=== PATIENT | female | born 2000 | race Caucasian/White ===

== ENCOUNTER 2025-08-14 10:42 | Emergency (ER) | payer OTHER, SELFPAY ==
--- NOTE | ~2025-08-14 | XR_ITS ---
EXAMINATION: XR ANKLE, right CLINICAL INFORMATION: Fall COMPARISON: None available. TECHNIQUE: AP, lateral, and mortise views lower extremity joint, ankle. FINDINGS: Ankle mortise is congruent. There is no widening of the syndesmosis. Talar dome is intact. There are no calcaneal enthesophyte(s). XR/XR ankle RT min 3V IMPRESSION: Unremarkable ankle x-ray. Electronically signed by: Javi Flores MD 08/14/2025 11:49 AM [facility]
--- NOTE | ~2025-08-14 | XR_ITS ---
EXAMINATION: XR FOOT, RIGHT CLINICAL INFORMATION: fall COMPARISON: None available. TECHNIQUE: AP, lateral, and oblique views of the right foot. FINDINGS: The bones and soft tissues are normal. No fracture. Alignment is anatomic. Joint spaces are maintained. XR/XR foot RT min 3V IMPRESSION: Unremarkable right foot. Electronically signed by: Javi Flores MD 08/14/2025 11:50 AM [facility]
[2025-08-14 10:48] VITALS: BP 138/78; PULSE 88; O2SAT 99
[2025-08-14 11:15] VITALS: BP 121/76; PULSE 75; RESP 16; TEMP 36.8; O2SAT 97; BMI 23.9
--- NOTE | 2025-08-14 11:20 | ED_ITS ---
HPI - General Adult General Chief complaint: Extremity Injury, Lower Stated complaint: FALL DOWN 3 STEPS,R ANKLE PAIN Time Seen by Provider: 08/14/25 12:46 Source: patient Mode of arrival: ambulatory Limitations: no limitations History of Present Illness ED Provider: DR. Lewis HPI narrative: 25-year-old female came in for evaluation after sustained a mechanical fall at 07:00 in the morning patient tripped and missed a step causing her to fall down 3 steps of stairs and twisting her right ankle and right foot, patient is complaining of right ankle/foot pain, no head injury, no LOC, no neck pain, no CP, no SOB, no abdominal pain, no nausea, no vomiting, no neck pain. Related Data Allergies Allergy/AdvReac Type Severity Reaction Status Date / Time No Known Allergies Allergy Verified 08/14/25 11:17 Review of Systems Review of Systems: All other systems are reviewed and are negative Constitutional: Reports as per HPI and Reports no additional constitutional complaints Eyes: Reports as per HPI and Reports no additional eye complaints Reports system reviewed and no additional complaints, except as documented Cardiovascular: Reports as per HPI and Reports no additional cardiovascular complaints Respiratory: Reports as per HPI and Reports no additional respiratory complaints Gastrointestinal: Reports as per HPI and Reports no additional gastrointestinal complaints Genitourinary: Reports no additional female genitourinary complaints Musculoskeletal: Reports no additional musculoskeletal complaints Skin/Breast: Reports system reviewed and no additional complaints, except as docu Psychiatric: Reports no additional psychiatric complaints Endocrine: Reports no additional endocrine complaints Hematologic/Lymphatic: Reports no additional hematologic/lymphatic complaints Allergic/Immunologic: Reports no additional allergic/immunologic complaints Reports system reviewed and no additional complaints, except as documented and Reports Abnormal speech present [facility] Social History Social History Advance Directives: No Advance Directives Information Provided: Yes Physical Exam ED Vital Signs: Vital Signs - 24 hr 08/14/25 11:15 08/14/25 13:14 Temperature 98.3 F 98.3 F Pulse Rate 75 75 Respiratory Rate 16 16 Blood Pressure 121/76 121/76 Pulse Oximetry 97 97 Oxygen Delivery Method Room Air Room Air BMI result Body Mass Index 23.9 Vital signs have been reviewed and appear to be correct. Blood pressure elevated. Heart rate normal. Respiratory rate normal. Temperature normal. Oxygen saturation normal. Appearance: Alert. Oriented X3. No acute distress. Head: Normal external exam. Normocephalic. Atraumatic. No Jackson signs noted. No raccoon eyes noted Eyes: PERRLA. EOMI. Conjunctiva and sclera normal. Eyelids normal. ENT: TM's Normal. Pharynx normal. Uvula midline. Moist mucous membranes. No trismus noted. No drooling noted. No muffled voice noted. Neck: Normal inspection. Neck supple. FROM. No adenopathy. Thyroid Normal. No meningeal signs. No neck mass noted. CVS: Normal heart rate and rhythm. Heart sound normal. No murmurs noted. Pulses normal throughout. Respiratory: No respiratory distress. Painless inspiration. Breath sounds normal. No wheezes/rales/rhonchi noted. Chest nontender. No accessory muscle usage noted or decreased air movement noted. Abdomen: Soft and nontender. Bowel sounds normal in all 4 quadrants. No distention noted. No organomegaly noted. No visible injury noted. Back: No CVA tenderness. Full range of motion noted. Skin: Skin warm and dry. Normal skin color. Normal skin turgor. No rashes/lesions/lacerations noted. Extremities: Right lower extremity exam: Diffuse tenderness around the right ankle, +right PT/DP, cap refill is less than 2 seconds. Neuro: Oriented X 3. Cranial nerve exam: II-XII are grossly intact No motor deficit. No sensory deficit. Reflexes normal. Course Course Course Narrative: RME: 25-year-old female presents to ED for right ankle pain after falling down 3 steps. Patient denies any head or LOC. Patient is able to bear weight. X- ray ordered Reevaluation(s) Reevaluation #1: S/p right ankle contusion and sprain. Ice, elevation, Moisés bandage, NSAIDs PRN, crutches for no weight bearing. Time: 13:02 Medications Administered Discontinued Medications Generic Name Dose Route Start Last Admin Trade Name Naborq PRN Reason Stop Dose Admin Ibuprofen 800 mg 08/14/25 12:56 08/14/25 13:14 Ibuprofen 800 Mg Tablet PO 08/14/25 12:57 800 mg ONCE ONE Administration Medical Decision Making Differential Diagnosis Differential Diagnoses: The differential diagnosis associated with the presentation includes (Closed head injury, cervical spine injury, chest injury, back injury, abdominal injury, right foot fracture, right ankle fracture.) Admission/Observation Consideration of admission/observation: Escalation of care including admission/observation considered Lab Data MDM Lab Attestation statement: I reviewed the patient's lab results. Independent Interpretation I performed an independent interpretation of an: Plain X-Ray (Right ankle/foot: No acute fracture.) Radiology Impression Discussion of test interpretation with radiology: I have reviewed the radiologist's reading. Discharge Plan Discharge Clinical Impression: Ankle sprain and strain Patient Disposition: Home, Self-Care Instructions: Ankle Sprain (ED) Additional Instructions: Apply ice to the ankle and foot. Take [id number] ibuprofen 200 mg tablet every 6 hours if needed for pain. Use Moisés bandage to wrap your foot and ankle. Referrals: Lisa Nichols MD [Primary Care Provider, Family Practice] Stand Alone Forms: Work/School Release Interventions: ED Discharge Assessment Last Done: 08/14/25 13:14 Discharge Date/Time: 08/14/25 13:18 Print Language: Taiwanese
[2025-08-14 13:14] VITALS: BP 121/76; PULSE 75; RESP 16; TEMP 36.8; O2SAT 97
== END 2025-08-14 13:18 | disposition home or self-care (01) ==
PROVIDERS: Emergency Provider Emergency Medicine; PCP Family Medicine
DX: S93.401A Sprain of unspecified ligament of right ankle, initial encounter (principal); W10.2XXA Fall (on)(from) incline, initial encounter; Y93.9 Activity, unspecified; Y92.9 Unspecified place or not applicable; Y99.9 Unspecified external cause status
CPT/HCPCS: 73610; 73630; 99283

== ENCOUNTER → 2025-08-14 11:19 | Outpatient (BNV) | payer OTHER, SELFPAY | PROVIDERS: Visit Provider Radiology Diagnostic Radiology | DX: Z04.3 Encounter for examination and observation following other accident (principal) | CPT/HCPCS: 73610; 73630 ==